=== PATIENT | female | born 1950 | race Asian ===

== ENCOUNTER 2018-12-31 17:28 | Outpatient (CLI) | payer OTHER ==
[~2018-12-31 17:28] MED LIST: GABA100C2 PO; LISI20TA24 PO; LISINOP/HCTZ1 TA2 PO; METO25TA4 PO; SOMA350 MG PO
== END 2018-12-31 21:42 | disposition home or self-care (01) ==
LOC: RAD 17:28
DX: Z20.1 Contact with and (suspected) exposure to tuberculosis (principal)

== ENCOUNTER 2019-07-23 17:17 | Outpatient (CLI) | payer OTHER | END 2019-07-23 20:16 | disposition home or self-care (01) | LOC: LABW 17:17 | DX: M54.17 Radiculopathy, lumbosacral region (principal); M54.5 Low back pain; M33.20 Polymyositis, organ involvement unspecified | CPT/HCPCS: 36415; 82550 ==

== ENCOUNTER 2020-07-27 14:22 | Emergency (ER) | payer OTHER ==
[~2020-07-27] VITALS: Ht 157.5 cm; Wt 77.2 kg
[2020-07-27 14:32] VITALS: TEMP 97.2
[2020-07-27 16:25] VITALS: BP 152/94
== END 2020-07-27 16:25 | disposition home or self-care (01) ==
LOC: ED 14:22
DX: S16.1XXA Strain of muscle, fascia and tendon at neck level, initial encounter (principal); S39.012A Strain of muscle, fascia and tendon of lower back, initial encounter; M25.562 Pain in left knee; V49.40XA Driver injured in collision with unspecified motor vehicles in traffic accident, initial encounter; Y92.89 Other specified places as the place of occurrence of the external cause
CPT/HCPCS: 96372; 99283; J1885

== ENCOUNTER 2021-08-22 22:27 | Emergency (ER) | payer OTHER ==
[~2021-08-22] VITALS: Ht 157.5 cm; Wt 74.8 kg
[2021-08-23 02:00] VITALS: BP 178/86; TEMP 97.7
== END 2021-08-23 02:00 | disposition home or self-care (01) ==
LOC: ED 22:27
DX: R51.9 Headache, unspecified (principal)
CPT/HCPCS: 96372; 99283; J2270; J2405

== ENCOUNTER 2021-12-16 10:54 | Outpatient (CLI) | payer OTHER | END 2021-12-16 19:01 | disposition home or self-care (01) | LOC: MAMMO 10:54 | PROVIDERS: ATTEND Nurse Practitioner Family | DX: Z12.31 Encounter for screening mammogram for malignant neoplasm of breast (principal) ==

== ENCOUNTER 2022-07-18 23:33 | Inpatient (IN) | payer OTHER ==
[~2022-07-18] VITALS: Ht 157.5 cm; Wt 74.8 kg
[2022-07-18 23:40] VITALS: BP 172/92; TEMP 98.7
[2022-07-19 00:44] LABS: POTASSIUM 3.8 mmol/L (3.6-5.2)
[2022-07-19 00:54] LABS: PLATELET COUNT 154 K/uL (152-353)
[2022-07-19 02:34] VITALS: BP 151/68; TEMP 97.5
[2022-07-19 03:40] VITALS: BP 101/40; TEMP 97.9
[2022-07-19 05:11] LABS: PLATELET COUNT 122 K/uL (152-353)
[2022-07-19 05:17] LABS: POTASSIUM 4.4 mmol/L (3.6-5.2)
[2022-07-19 07:40] VITALS: BP 138/69; TEMP 97.5
[2022-07-19 11:40] VITALS: BP 144/61; TEMP 97.8
[2022-07-19] MEDS ORDERED: CALAN SR120 MG PO (14:03)
[2022-07-19] MEDS ORDERED: LORA10TA3 PO (14:04)
[2022-07-19] MEDS ORDERED: SIMV40TA57 PO (14:07)
[2022-07-19] MEDS ORDERED: LISI20TA31 PO (14:07)
[2022-07-19 15:40] VITALS: BP 120/76; TEMP 97.8
[2022-07-19 19:40] VITALS: BP 137/71; TEMP 98.4
[2022-07-20] VITALS: BP 143/75; TEMP 97.2
[2022-07-20 04:00] VITALS: BP 155/68; TEMP 97.5
[2022-07-20 05:11] LABS: POTASSIUM 3.7 mmol/L (3.6-5.2)
[2022-07-20 08:29] VITALS: BP 160/74; TEMP 97.5
[2022-07-20] MEDS ORDERED: PANTOPRAZOLE 40MG TA PO (12:11)
== END 2022-07-20 22:04 | disposition home or self-care (01) | DRG 439 ==
LOC: ED 23:33 → MED/SURG 07-19 01:40
PROVIDERS: Emergency Medicine Emergency Medical Services; ADMIT Internal Medicine; ATTEND Internal Medicine
DX: K85.80 Other acute pancreatitis without necrosis or infection (principal); M33.20 Polymyositis, organ involvement unspecified; I10 Essential (primary) hypertension; K44.9 Diaphragmatic hernia without obstruction or gangrene; K21.9 Gastro-esophageal reflux disease without esophagitis; M15.8 Other polyosteoarthritis
CPT/HCPCS: 36415; 80048; 80053; 80061; 81002; 82150; 83690; 83735; 85027; 87635; 96360; 96361; 96374; 96375; 99284; J1885; J2405; J3490; U0003

== ENCOUNTER 2023-03-17 11:03 | Outpatient (CLI) | payer OTHER ==
[~2023-03-17 11:03] MED LIST changes: +CALAN SR120 MG PO; +LISI20TA31 PO; +LORA10TA3 PO; +PANTOPRAZOLE 40MG TA PO; +SIMV40TA57 PO
== END 2023-03-17 19:02 | disposition home or self-care (01) ==
LOC: MAMMO 11:03
PROVIDERS: ATTEND Nurse Practitioner Family
DX: Z12.31 Encounter for screening mammogram for malignant neoplasm of breast (principal)